=== PATIENT | female | born 1950 | race Caucasian/White ===

== ENCOUNTER 2017-10-30 19:32 | Emergency (ER) | payer OTHER, BC ==
[~2017-10-30] VITALS: Ht 160 cm; Wt 70.8 kg
[2017-10-30] MEDS ORDERED: PREDNISONE20 MG PO (20:05)
[2017-10-30] MEDS ORDERED: EPIPEN ADU0.3 MG/0.3 IM (20:07)
[2017-10-30 21:26] LABS: HEMATOCRIT 42.4 % (36.0-46.0); HEMOGLOBIN 15.1 G/DL (11.9-15.5); MCH 32.8 PG (29.0-34.0); MCHC 35.6 G/DL (30.0-36.0); MCV 92.2 FL (83-99); PLATELET COUNT 239 K/uL (156-360); RBC DIS.WIDTH-CV 12.3 % (11.8-14.6); RBC DIS.WIDTH-SD 41.5 % (39-53); WHITE BLOOD COUNT 17.4 K/uL (4.1-10.2)
[2017-10-30 21:49] LABS: ALBUMIN 4.3 g/dL (3.2-4.8); CHLORIDE 106 mEq/L (99-109); POTASSIUM 4.3 mEq/L (3.7-5.4); SODIUM 138 mEq/L (136-147)
[2017-10-30 21:52] LABS: GLUCOSE 123 mg/dL (70-99); TOTAL PROTEIN 7.2 g/dL (6.4-8.3)
[2017-10-30 21:54] LABS: TOTAL BILIRUBIN 1.3 mg/dL (0.0-1.0)
[2017-10-30 21:55] LABS: ALKALINE PHOSPHATASE 131 IU/L (3-129); GFR ESTIMATE (CALCULATED) 59 mL/min/
[2017-10-30 21:56] LABS: UREA NITROGEN (BUN) 23 mg/dL (9-23)
[2017-10-30 21:57] LABS: AST (GOT) 36 IU/L (2-34)
[2017-10-30 21:58] LABS: ALT (GPT) 44 IU/L (3-49)
[2017-10-30 23:27] VITALS: BP 121/75
== END 2017-10-30 23:28 | disposition home or self-care (01) ==
LOC: EME 19:32
PROVIDERS: Nurse Practitioner Family
DX: T63.441A Toxic effect of venom of bees, accidental (unintentional), initial encounter (principal); I10 Essential (primary) hypertension; E06.3 Autoimmune thyroiditis
CPT/HCPCS: 71046; 80053; 85027; 94640; 99281; 99285; J7030; J7512